=== PATIENT | female | born 1970 | race African-American/Black ===

== ENCOUNTER 2024-08-28 12:04 | Emergency (ER) | payer SELFPAY ==
[~2024-08-28] VITALS: Ht 157.5 cm; Wt 75.0 kg
[2024-08-28 12:12] VITALS: O2SAT 100
[2024-08-28] MEDS ORDERED: LORAZEPAM 1MG TABLET PO ONE (14:00)
[2024-08-28] MEDS ORDERED: ASPIRIN 325MG EC TABLET PO ONE (14:00)
[2024-08-28 17:03] LABS: BASOPHILS % 0.5 % (0.0-2.0); DIFFERENTIAL COMMENT 0; EOSINOPHILS % 0.8 % (0.0-5.0); HEMATOCRIT. 43.1 % (36.0-48.0); HEMOGLOBIN. 13.9 g/dL (12.0-16.0); LYMPHOCYTES % 36.2 % (20.0-50.0); MEAN CORPUSCULAR HEMOGLOBIN 27.3 pg (28.0-32.0); MEAN CORPUSCULAR HGB CONC 32.2 g/dL (31.0-37.0); MEAN CORPUSCULAR VOLUME 84.7 fL (81.0-99.0); MEAN PLATELET VOLUME 9.9 fl (7.4-10.4); MONOCYTES % 6.2 % (2.0-8.0); NEUTROPHILS % 56.3 % (40.0-76.0); PLATELET 231 x1000/uL (130-400); RED BLOOD CELL COUNT 5.08 mill/uL (4.2-5.4); RED CELL DISTRIBUTION WIDTH 14.1 % (11.6-14.6); WHITE BLOOD COUNT 4.6 x1000/uL (4.5-11.0)
[2024-08-28 17:11] LABS: CHLORIDE 106 mEq/L (98-107); POTASSIUM 3.7 mEq/L (3.5-5.1); SODIUM 140 mEq/L (136-145)
[2024-08-28 17:12] LABS: CALCIUM 9.4 mg/dL (8.7-10.4); CARBON DIOXIDE 27 mEq/L (21-32)
[2024-08-28 17:17] LABS: CREATININE 0.7 mg/dL (0.6-1.0); GLUCOSE 201 mg/dL (70-105); UREA NITROGEN BLOOD 10 mg/dL (9-23)
[2024-08-28 17:29] LABS: TROPONIN I HIGH SENSITIVITY < 4 ng/L (3.0-34)
[2024-08-28] MEDS: ASPIRIN 325MG EC TABLET PO NR (17:48)
[2024-08-28] MEDS: LORAZEPAM 1MG TABLET PO NR (17:49)
[2024-08-28 17:50] VITALS: BP 161/79; PULSE 68; RESP 17; TEMP 36.39180; O2SAT 99
== END 2024-08-28 18:09 | disposition home or self-care (01) ==
LOC: ER 12:24
DX: F41.9 Anxiety disorder, unspecified (principal); R00.2 Palpitations
CPT/HCPCS: 36415; 71045; 80048; 84484; 85025; 93005; 99285